=== PATIENT | female | born 1950 | race African-American/Black ===

== ENCOUNTER 2021-02-28 07:22 | Emergency (ER) | payer OTHER, MEDICARE ==
[2021-02-28 07:43] VITALS: TEMP 98.4; BMI 42.5
[2021-02-28] MEDS ORDERED: SODIUM CHLORIDE 1,000 ML IV STA (08:01)
[2021-02-28 08:27] LABS: BASO % 0.9 % (0-2.0); EOS % 1.9 % (0-4.5); HEMATOCRIT 38.8 % (32.4-45.2); HEMOGLOBIN 12.8 GM/dL (10.7-15.3); LYMPH % 36.7 % (8-40); MCH 29.9 pg (25.7-33.7); MCHC 32.9 g/dl (32.0-36.0); MEAN CELL VOLUME 90.6 fl (80-96); MEAN PLT VOLUME 8.7 fl (7.5-11.1); MONO % 9.7 % (3.8-10.2); NEUT % 50.8 % (42.8-82.8); PLATELET COUNT 214 10^3/uL (134-434); RBC 4.28 M/mm3 (3.60-5.2); RDW 14.4 % (11.6-15.6)
[2021-02-28 08:45] LABS: CHLORIDE 111 mmol/L (98-107); SODIUM 141 mmol/L (136-145)
[2021-02-28] MEDS ORDERED: METOCLOPRAMIDE HCL INJECTION 10 MG/2 ML VIAL IVPUSH ONE (08:46)
[2021-02-28] MEDS ORDERED: ACETAMINOPHEN 500 MG TABLET (FP) PO ONE (08:46)
[2021-02-28 08:47] LABS: ALBUMIN 2.9 g/dl (3.4-5.0); ANION GAP 3 MMOL/L (8-16); BLOOD UREA NITROGEN 17.6 mg/dL (7-18); CALCIUM 8.6 mg/dL (8.5-10.1); CO2 27 mmol/L (21-32); GLUCOSE,RANDOM 95 mg/dL (74-106); MAGNESIUM 2.5 mg/dL (1.8-2.4)
[2021-02-28 08:50] LABS: SGPT/ALT 16 U/L (13-61)
[2021-02-28 08:51] LABS: CREATININE 0.9 mg/dL (0.55-1.3); SGOT/AST 32 U/L (15-37)
[2021-02-28 08:52] LABS: BILIRUBIN,TOTAL 0.8 mg/dL (0.2-1); TOT PROT 7.7 g/dl (6.4-8.2)
[2021-02-28 08:53] LABS: ALK PHOS 67 U/L (45-117)
[2021-02-28] MEDS ORDERED: METOCLOPRAMIDE HCL INJECTION 10 MG/2 ML VIAL ONE (08:57)
[2021-02-28 10:21] VITALS: BP 116/94; PULSE 90
== END 2021-02-28 11:07 | disposition home or self-care (01) ==
LOC: JER 07:22
PROC: 3E033GC Introduction of Other Therapeutic Substance into Peripheral Vein, Percutaneous Approach (ICD-10-PCS; principal; 2021-02-28)
PROC: 3E0337Z Introduction of Electrolytic and Water Balance Substance into Peripheral Vein, Percutaneous Approach (ICD-10-PCS; 2021-02-28)
DX: R00.2 Palpitations (principal)
CPT/HCPCS: 36415; 71045-TC-FY; 80053; 82550; 82553; 83735; 84443; 84484; 85025; 93005; 93010; 99285-25

== ENCOUNTER 2021-04-17 10:13 | Emergency (ER) | payer OTHER, MEDICARE ==
[2021-04-17 10:27] VITALS: BP 122/84; PULSE 97; TEMP 98; BMI 41.8
== END 2021-04-17 12:00 | disposition home or self-care (01) ==
LOC: JERFT 10:13
PROC: 2W3QX1Z Immobilization of Right Lower Leg using Splint (ICD-10-PCS; principal; 2021-04-17)
DX: S82.891A Other fracture of right lower leg, initial encounter for closed fracture (principal); W10.8XXA Fall (on) (from) other stairs and steps, initial encounter
CPT/HCPCS: 29515; 73610-TC-RT-FY; 73630-TC-RT-FY; 99283-25

== ENCOUNTER → 2021-04-21 | Day surgery (SDC) | payer OTHER, MEDICARE | END | disposition home or self-care (01) | LOC: JRADIR 09:49 | PROVIDERS: ATTEND Internal Medicine Endocrinology, Diabetes & Metabolism | PROC: 0G9K3ZX Drainage of Thyroid Gland, Percutaneous Approach, Diagnostic (ICD-10-PCS; principal; 2021-04-21) | DX: E04.1 Nontoxic single thyroid nodule (principal) | CPT/HCPCS: 10005; 76942; 88173; 88305-TC ==

== ENCOUNTER 2023-05-28 15:43 | Emergency (ER) | payer OTHER, MEDICARE ==
[2023-05-28 15:53] VITALS: BP 153/90; PULSE 86; RESP 20; TEMP 98.3; BMI 41.0
== END 2023-05-28 16:21 | disposition home or self-care (01) ==
LOC: FER 15:43
DX: H11.32 Conjunctival hemorrhage, left eye (principal); H57.89 Other specified disorders of eye and adnexa
CPT/HCPCS: 99282-25

== ENCOUNTER 2023-11-13 14:07 | Emergency (ER) | payer MEDICARE, OTHER ==
[2023-11-13 15:37] VITALS: BP 129/89; PULSE 99; RESP 16; TEMP 98.8; BMI 40.1
== END 2023-11-13 15:14 | disposition home or self-care (01) ==
LOC: FER 14:07
DX: M25.511 Pain in right shoulder (principal); V49.50XA Passenger injured in collision with unspecified motor vehicles in traffic accident, initial encounter; Y92.410 Unspecified street and highway as the place of occurrence of the external cause
CPT/HCPCS: 99283-25